=== PATIENT | female | born 1970 | race Caucasian/White ===

== ENCOUNTER 2021-07-29 17:44 | Emergency (ER) | payer SELFPAY ==
[2021-07-29] MEDS ORDERED: Acetaminophen 500 MG TAB ONE (18:29)
[2021-07-29] MEDS ORDERED: Ibuprofen 200 MG TAB ONE (18:29)
[2021-07-29 19:06] LABS: SARS-CoV-2 NAA Rapid Test Not Detected (NotDetected)
[2021-07-29] MEDS ORDERED: Benzonatate 100 MG CAP ONE (19:06)
[2021-07-29] MEDS ORDERED: Azithromycin 250 MG TAB ONE (19:53)
[2021-07-30] MEDS ORDERED: hydrALAZINE 20 MG/ML VIAL ONE (04:25)
== END 2021-07-29 20:04 | disposition home or self-care (01) ==
LOC: CSHERS 17:44
DX: J18.9 Pneumonia, unspecified organism (principal); Z20.822 Contact with and (suspected) exposure to COVID-19; I10 Essential (primary) hypertension
CPT/HCPCS: 0240U; 71045; 71250; 87081; 87430; J0360

== ENCOUNTER 2021-07-30 02:59 | Inpatient (IN) | payer SELFPAY ==
[2021-07-30 03:33] LABS: #Eosinphils 0.1 10x3/uL (0.0-0.5); #Monocytes 0.4 10x3/uL (0.0-1.1); #Neutrophils 2.8 10x3/uL (1.5-8.4); %Basophils 0.5 % (0.0-2.0); %Eosinophils 3.2 % (0.0-6.0); %Lymphocytes 20.9 % (18.0-47.0); %Monocytes 10.1 % (0.0-10.0); %Neutrophils 65.1 % (40.0-75.0); Hemoglobin 13.9 g/dL (12.0-15.5); Mean Corpuscular HGB CONC 32.6 g/dL (32.0-36.0); Mean Corpuscular Hemoglobin 28.4 pg (27.0-33.0); Mean Corpuscular Volume 86.9 fl (81.6-98.3); Mean Platelet Volume 10.2 fl (7.4-10.4); Platelet Count 185 10x3/uL (150-450); RBC Distribution Width 13.3 % (11.5-14.5); White Blood Cell (WBC) Count 4.4 10x3/uL (3.5-10.5)
[2021-07-30] MEDS ORDERED: Ketorolac Tromethamine 30 MG/ML VIAL ONE (03:41)
[2021-07-30] MEDS ORDERED: Aspirin 325 MG TAB ONE (03:42)
[2021-07-30] MEDS ORDERED: cefTRIAXone\\ROCEPHIN 1 GM VIAL ONE (03:42)
[2021-07-30] MEDS ORDERED: Nitroglycerin 2% Ointment 1 INCH/1 GM Packet ONE (03:42)
[2021-07-30 03:49] LABS: ALT (SGPT) 56 U/L (8-55); AST (SGOT) 43 U/L (5-34); Albumin 3.8 g/dL (3.5-5.0); Alkaline Phosphatase 104 U/L (40-110); Anion Gap 13 mmol/L (10-20); BUN (Urea Nitrogen) 9 mg/dL (9.8-20.1); Bilirubin, Total 0.3 mg/dL (0.2-1.2); Calc. Creatinine Clearance 0 mL/min (70-130); Calcium 8.5 mg/dL (7.8-10.44); Carbon Dioxide 25 mmol/L (22-29); Chloride 107 mmol/L (98-107); Globulin 3.3 g/dL (2.4-3.5); Glucose 115 mg/dL (70-105); Potassium 3.5 mmol/L (3.5-5.1); Protein, Total 7.1 g/dL (6.0-8.3); Sodium 141 mmol/L (136-145)
[2021-07-30] MEDS ORDERED: Oxymetazoline HCl 0.05% ( 15 ML ) ONE (04:38)
[2021-07-30 05:56] VITALS: BMI 32.9
[2021-07-30] MEDS ORDERED: Acetaminophen 325 MG TAB PO PRN (06:21)
[2021-07-30] MEDS ORDERED: Senokot S 8.6-50 MG TAB PO PRN (06:21)
[2021-07-30] MEDS ORDERED: Milk Of Magnesia 30 ML UDCUP PO PRN (06:28)
[2021-07-30] MEDS: HYDROcodone/Acetaminophen 10/325 mg Tablet PO PRN ×2 (09:18→18:54)
[2021-07-30] MEDS: Valsartan 80 MG TAB PO SCH (09:20)
[2021-07-30] MEDS: Azithromycin 500 MG in Sodium Chloride 0.9% 250 ML 250 ML IVPB SCH (09:20)
[2021-07-30] MEDS: Guaifenesin DM 100-10/5 ML UDCUP PO PRN ×2 (09:20→15:22)
[2021-07-30] MEDS: Fioricet 325/50/40 mg Tablet PO PRN ×2 (10:30→15:23)
[2021-07-30] MEDS: Enoxaparin Sodium 40 MG/0.4 ML SYRINGE SC SCH (12:17)
[2021-07-30 13:37] LABS: Legionella Urinary Ag Negative (Negative); Strep pneumo Urine Ag NEGATIVE (NEGATIVE)
[2021-07-30] MEDS ORDERED: Sodium Chloride 0.65% Nasal 44 ML BOT EA NARE PRN (16:07)
[2021-07-30] MEDS ORDERED: Amlodipine 10 MG TAB PO SCH (20:00)
[2021-07-31] MEDS: HYDROcodone/Acetaminophen 10/325 mg Tablet PO PRN ×2 (00:29→23:24)
[2021-07-31 04:15] LABS: #Eosinphils 0.1 10x3/uL (0.0-0.5); #Monocytes 0.5 10x3/uL (0.0-1.1); #Neutrophils 2.4 10x3/uL (1.5-8.4); %Basophils 0.2 % (0.0-2.0); %Eosinophils 3.2 % (0.0-6.0); %Lymphocytes 30.5 % (18.0-47.0); %Monocytes 11.8 % (0.0-10.0); %Neutrophils 54.1 % (40.0-75.0); Hemoglobin 13.3 g/dL (12.0-15.5); Mean Corpuscular HGB CONC 32.8 g/dL (32.0-36.0); Mean Corpuscular Hemoglobin 28.6 pg (27.0-33.0); Mean Corpuscular Volume 87.3 fl (81.6-98.3); Mean Platelet Volume 10.6 fl (7.4-10.4); Platelet Count 181 10x3/uL (150-450); RBC Distribution Width 13.6 % (11.5-14.5); Red Blood Cell (RBC) Count 4.65 10x6/uL (3.90-5.03); White Blood Cell (WBC) Count 4.4 10x3/uL (3.5-10.5)
[2021-07-31 04:29] LABS: Anion Gap 10 mmol/L (10-20); BUN (Urea Nitrogen) 8 mg/dL (9.8-20.1); Calc. Creatinine Clearance 150 mL/min (70-130); Calcium 8.2 mg/dL (7.8-10.44); Carbon Dioxide 24 mmol/L (22-29); Chloride 106 mmol/L (98-107); Glucose 116 mg/dL (70-105); Magnesium 1.8 mg/dL (1.6-2.6); Potassium 3.4 mmol/L (3.5-5.1); Sodium 137 mmol/L (136-145)
[2021-07-31] MEDS: cefTRIAXone\\ROCEPHIN 1 GM in Sodium Chloride 0.9% 100 ML IVPB SCH (04:41)
[2021-07-31] MEDS: Azithromycin 500 MG in Sodium Chloride 0.9% 250 ML 250 ML IVPB SCH (08:25)
[2021-07-31] MEDS: Enoxaparin Sodium 40 MG/0.4 ML SYRINGE SC SCH (08:26)
[2021-07-31] MEDS: Amlodipine 10 MG TAB PO SCH (08:26)
[2021-07-31] MEDS: Valsartan 80 MG TAB PO SCH (08:26)
[2021-07-31] MEDS: Guaifenesin DM 100-10/5 ML UDCUP PO PRN (08:34)
[2021-07-31] MEDS: Fioricet 325/50/40 mg Tablet PO PRN (11:07)
[2021-07-31] MEDS ORDERED: Benzonatate 100 MG CAP PO PRN (11:46)
[2021-07-31] MEDS ORDERED: Lorazepam 0.5 MG TAB PO PRN (11:47)
[2021-07-31] MEDS ORDERED: guaiFENesin ER 600 MG TAB PO SCH (12:00)
[2021-07-31] MEDS ORDERED: Loratadine 10 MG TAB PO SCH (12:00)
[2021-07-31] MEDS ORDERED: Potassium Chloride 20 MEQ TAB PO SCH (12:00)
[2021-07-31] MEDS ORDERED: methylPREDNISolone Sod Succ 40 MG VIAL IVP SCH (12:15)
[2021-07-31] MEDS: guaiFENesin ER 600 MG TAB PO SCH (23:07)
[2021-07-31] MEDS: methylPREDNISolone Sod Succ 40 MG VIAL IVP SCH (23:07)
[2021-08-01] MEDS: cefTRIAXone\\ROCEPHIN 1 GM in Sodium Chloride 0.9% 100 ML IVPB SCH (04:31)
[2021-08-01 05:42] LABS: #Monocytes 0.2 10x3/uL (0.0-1.1); #Neutrophils 3.2 10x3/uL (1.5-8.4); %Lymphocytes 14.8 % (18.0-47.0); %Neutrophils 80.9 % (40.0-75.0); Hemoglobin 13.4 g/dL (12.0-15.5); Mean Corpuscular HGB CONC 32.6 g/dL (32.0-36.0); Mean Corpuscular Hemoglobin 28.4 pg (27.0-33.0); Mean Corpuscular Volume 87.1 fl (81.6-98.3); Mean Platelet Volume 10.4 fl (7.4-10.4); Platelet Count 199 10x3/uL (150-450); RBC Distribution Width 13.4 % (11.5-14.5); Red Blood Cell (RBC) Count 4.72 10x6/uL (3.90-5.03)
[2021-08-01 05:58] LABS: Anion Gap 12 mmol/L (10-20); BUN (Urea Nitrogen) 11 mg/dL (9.8-20.1); Calc. Creatinine Clearance 154 mL/min (70-130); Calcium 8.8 mg/dL (7.8-10.44); Carbon Dioxide 23 mmol/L (22-29); Chloride 108 mmol/L (98-107); Glucose 156 mg/dL (70-105); Potassium 4.2 mmol/L (3.5-5.1); Sodium 139 mmol/L (136-145)
[2021-08-01] MEDS: Valsartan 80 MG TAB PO SCH (10:01)
[2021-08-01] MEDS: HYDROcodone/Acetaminophen 10/325 mg Tablet PO PRN (10:01)
[2021-08-01] MEDS: methylPREDNISolone Sod Succ 40 MG VIAL IVP SCH ×2 (10:01→21:15)
[2021-08-01] MEDS: guaiFENesin ER 600 MG TAB PO SCH ×2 (10:02→21:15)
[2021-08-01] MEDS: Amlodipine 10 MG TAB PO SCH (10:02)
[2021-08-01] MEDS: Azithromycin 500 MG in Sodium Chloride 0.9% 250 ML 250 ML IVPB SCH (10:03)
[2021-08-01] MEDS: Loratadine 10 MG TAB PO SCH (10:03)
[2021-08-01] MEDS ORDERED: Enoxaparin Sodium 40 MG/0.4 ML SYRINGE SC SCH (15:30)
[2021-08-01] MEDS: HYDROcodone/Acetaminophen 7.5/325 mg Tablet PO PRN (21:19)
[2021-08-02] MEDS: HYDROcodone/Acetaminophen 7.5/325 mg Tablet PO PRN (04:53)
[2021-08-02] MEDS: cefTRIAXone\\ROCEPHIN 1 GM in Sodium Chloride 0.9% 100 ML IVPB SCH (04:54)
[2021-08-02] MEDS: Azithromycin 500 MG in Sodium Chloride 0.9% 250 ML 250 ML IVPB SCH (06:39)
[2021-08-02] MEDS ORDERED: Enoxaparin Sodium 40 MG/0.4 ML SYRINGE SC SCH (09:00)
[2021-08-02] MEDS: methylPREDNISolone Sod Succ 40 MG VIAL IVP SCH (09:01)
[2021-08-02] MEDS: Loratadine 10 MG TAB PO SCH (09:02)
[2021-08-02] MEDS: guaiFENesin ER 600 MG TAB PO SCH (09:02)
[2021-08-02] MEDS: Valsartan 80 MG TAB PO SCH (09:02)
[2021-08-02] MEDS: HYDROcodone/Acetaminophen 10/325 mg Tablet PO PRN (09:03)
[2021-08-02] MEDS: Amlodipine 10 MG TAB PO SCH (09:16)
[2021-08-02 16:20] VITALS: BP 128/60; TEMP 97.5
== END 2021-08-02 17:30 | disposition home or self-care (01) | DRG 195 ==
LOC: CSHERS 02:59 → CSHTELE 03:00
PROVIDERS: ADMIT Family Medicine; ATTEND Internal Medicine
DX: J18.9 Pneumonia, unspecified organism (principal); I10 Essential (primary) hypertension; G43.909 Migraine, unspecified, not intractable, without status migrainosus; E66.9 Obesity, unspecified; F41.9 Anxiety disorder, unspecified; E87.6 Hypokalemia; Z79.899 Other long term (current) drug therapy; Z68.32 Body mass index [BMI] 32.0-32.9, adult
CPT/HCPCS: 36415; 80048; 80053; 83605; 83735; 83880; 84145; 84484; 85025; 87040; 87449; 87633; 87899; 93005; 94640; 94760; 94799; 96365; 96375; J0456; J0696; J1650; J1885; J2920; J3490; J7050; J7620

== ENCOUNTER 2022-06-11 17:35 | Emergency (ER) | payer SELFPAY ==
[2022-06-11] MEDS ORDERED: HYDROcodone/Acetaminophen 5/325 mg Tablet ONE (19:54)
[2022-06-11] MEDS ORDERED: Ibuprofen 200 MG TAB ONE (19:54)
== END 2022-06-11 20:50 | disposition home or self-care (01) ==
LOC: CSHERS 17:35
DX: S92.352A Displaced fracture of fifth metatarsal bone, left foot, initial encounter for closed fracture (principal); I10 Essential (primary) hypertension; Z79.899 Other long term (current) drug therapy; W19.XXXA Unspecified fall, initial encounter

== ENCOUNTER 2023-11-14 13:17 | Emergency (ER) | payer OTHER ==
[2023-11-14] MEDS ORDERED: Acetaminophen 500 MG TAB ONE (14:18)
[2023-11-14] MEDS ORDERED: Ketorolac Tromethamine 30 MG (1 mL) VIAL ONE (14:18)
[2023-11-14 14:25] LABS: Influenza A by NAA Not Detected (NotDetected); Influenza B by NAA Not Detected (NotDetected); SARS-CoV-2 NAA Rapid Test Not Detected (NotDetected)
== END 2023-11-14 15:35 | disposition home or self-care (01) ==
LOC: CSHERS 13:17
DX: B34.9 Viral infection, unspecified (principal); I10 Essential (primary) hypertension
CPT/HCPCS: 71045; 96372; J1885

== ENCOUNTER 2024-01-14 08:40 | Emergency (ER) | payer OTHER ==
[2024-01-14] MEDS ORDERED: Ketorolac Tromethamine 30 MG (1 mL) VIAL ONE (09:06)
[2024-01-14] MEDS ORDERED: HYDROmorphone 0.5 MG/0.5 ML SYRINGE ONE (09:06)
== END 2024-01-14 11:08 | disposition home or self-care (01) ==
LOC: CSHERS 08:40
DX: S20.219A Contusion of unspecified front wall of thorax, initial encounter (principal); I10 Essential (primary) hypertension; X58.XXXA Exposure to other specified factors, initial encounter
CPT/HCPCS: 71250; 96374; 96375; J1170; J1885